=== PATIENT | female | born 1970 | race Caucasian/White ===

== ENCOUNTER 2017-10-17 20:53 | Emergency (ER) | payer OTHER ==
[2017-10-17 20:57] VITALS: BP 124/71; TEMP 99.3; BMI 19.3
[2017-10-17] MEDS ORDERED: ACETAMINOPHEN 325 MG TABLET (FP) PO ONE (21:15)
[2017-10-17] MEDS ORDERED: ACETAMINOPHEN 325 MG TABLET (FP) ONE (21:17)
--- NOTE | 2017-10-17 21:17 | PDOC ---
History of Present Illness - General Chief Complaint: Cold Symptoms Stated Complaint: BODY ACHES/FEVER/NAUSEA Time Seen by Provider: 10/17/17 21:02 History Source: Patient - History of Present Illness Timing/Duration: reports: other Associated Symptoms: reports: cough, muscle aches, nasal congestion, nasal drainage. denies: dizziness, earache, facial pain, fever/chills, lightheadedness, sore throat, wheezing Past History - Past Medical History Allergies/Adverse Reactions: Allergies Allergy/AdvReac Type Severity Reaction Status Date / Time oxycodone HCl [From Roxicet] Allergy Verified 10/17/17 20:57 Home Medications: Ambulatory Orders Insulin Glargine,Hum.rec.anlog [Neptali Strong] 300 unit SQ ASDIR 10/17/17 Sitagliptin Phos/Metformin HCl [Janumet 50-1,000 mg Tablet] 1 each PO ASDIR COPD: No Diabetes: Yes - Surgical History Cholecystectomy: Yes - Suicide/Smoking/Psychosocial Hx Smoking Status: No Smoking History: Never smoked Hx Alcohol Use: No Drug/Substance Use Hx: No Substance Use Type: None Review of Systems - Review of Systems Constitutional: Yes: Malaise. No: Chills, Fever HEENTM: Yes: Throat Pain. No: Ear Pain Respiratory: Yes: Cough. No: Shortness of Breath, Wheezing *Physical Exam - Vital Signs Last Vital Signs Temp Pulse Resp BP Pulse Ox 99.3 F 120 H 18 124/71 98 10/17/17 20:55 10/17/17 20:55 10/17/17 20:55 10/17/17 20:55 10/17/17 20:55 - Physical Exam General Appearance: Yes: Appropriately Dressed. No: Apparent Distress HEENT: positive: Muffled/Hoarse voice. negative: Normal ENT Inspection, Pharynx Normal, Scleral Icterus (R), Scleral Icterus (L) Neck: positive: Supple. negative: Lymphadenopathy (R), Lymphadenopathy (L) Respiratory/Chest: positive: Lungs Clear, Normal Breath Sounds. negative: Respiratory Distress Cardiovascular: positive: Regular Rate, S1, S2 Integumentary: positive: Dry, Warm Neurologic: positive: Fully Oriented, Alert, Normal Mood/Affect Medical Decision Making - Medical Decision Making 10/17/17 21:16 47-year-old female, history of insulin-dependent diabetic, here with body aches , malaise, sore throat, dry cough, congestion and hoarseness 3 days. No fever , shortness of breath, chest pain, vomiting, diarrhea or rash. 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 Patient well-appearing, with tachycardia of 120 at triage, that decreased to 100 on repeat without any intervention. DC with supportive treatment. *DC/Admit/Observation/Transfer Diagnosis at time of Disposition: Viral syndrome - Discharge Dispostion Disposition: HOME Condition at time of disposition: Good - Referrals - Patient Instructions Printed Discharge Instructions: DI for Viral Syndrome - Post Discharge Activity Forms/Work/School Notes: Back to Work
[2017-10-17 21:22] VITALS: PULSE 100
== END 2017-10-17 21:22 | disposition home or self-care (01) ==
LOC: JERFT 20:53
DX: B34.9 Viral infection, unspecified (principal)
CPT/HCPCS: 99281-25